=== PATIENT | male | born 1950 | race Caucasian/White ===

== ENCOUNTER 2019-08-16 11:50 | Emergency (ER) | payer OTHER, SELFPAY ==
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
[2019-08-16 11:56] VITALS: BP 185/111; PULSE 76; RESP 20; TEMP 36.6; O2SAT 94; BMI 37.9
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
[2019-08-16 12:06] VITALS: O2SAT 94
[2019-08-16] MEDS: morphine 4 mg/mL SDV 1 mL IVP (12:25)
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
[2019-08-16] MEDS: ketorolac 30 mg/mL INJ IVP (13:51)
[2019-08-16 13:54] VITALS: BP 145/88; PULSE 66; O2SAT 94
--- NOTE | 2019-08-16 15:15 | PC.NURSE ---
pt up to ambulate to restroom. Pt tolerates activity well. Pt given fluids and verbal okay from ER provider
[2019-08-16 15:16] VITALS: BP 163/90; PULSE 65; O2SAT 96
[2019-08-16 15:44] VITALS: BP 163/90; PULSE 65; RESP 20; O2SAT 96
[2019-08-16 16:37] VITALS: RESP 18; O2SAT 94
[2019-08-16] MEDS: morphine 4 mg/mL SDV 1 mL 10 MG IVP (16:37)
== END 2019-08-16 16:59 | disposition short-term general hospital (02) ==
PROVIDERS: Emergency Provider Family Medicine
DX: S22.22XA Fracture of body of sternum, initial encounter for closed fracture (principal); V49.40XA Driver injured in collision with unspecified motor vehicles in traffic accident, initial encounter; Y92.411 Interstate highway as the place of occurrence of the external cause
CPT/HCPCS: 71250; 72125; 74176; 96374; 96375; 96376; 99283; 99285; J1885; J2270